=== PATIENT | female | born 1950 | race Caucasian/White ===

== ENCOUNTER 2024-08-08 11:00 | Outpatient (RCR) | payer MEDICARE, BC ==
[~2024-08-08 11:00] MED LIST: BIOTIN1 MG PO; CALCIUM1 CAP PO; HCTZ; LEXAPRO5 MG PO; MELOXICAM7.5 MG PO; VITAMIN B COMPL PO; cholesterol med
== END 2024-08-18 | disposition home or self-care (01) ==
LOC: WSST
DX: R49.0 Dysphonia (principal)